=== PATIENT | male | born 1995 | race Caucasian/White ===

== ENCOUNTER 2017-01-16 14:18 | Emergency (ER) | payer OTHER ==
[2017-01-16 14:24] VITALS: TEMP 97.5
--- NOTE | 2017-01-16 14:30 | EDPHY ---
H & P Stated Complaint: PAINFUL URINATION, DARK URINE, LOW BACK PAIN,NAUSEA,CHILLS - Personal History Current Tetanus Diphtheria and Acellular Pertussis (TDAP): Yes - Medical/Surgical History Other PMH: COLLAR BONE FX W/ SURGERY/PLATE, UTI - Social History Smoking Status: Never smoked Time Seen by Provider: 01/16/17 14:30 Constitutional: Initial Vital Signs Temperature (C) 36.4 C 01/16/17 14:22 Heart Rate 114 H 01/16/17 14:22 Respiratory Rate 18 01/16/17 14:22 Blood Pressure 102/64 01/16/17 14:22 O2 Sat (%) 97 01/16/17 14:22 O2 Delivery Mode Room Air Allergies/Adverse Reactions: No Known Allergies Allergy (Unverified 01/16/17 14:21) Home Medications: Medication Instructions Recorded NK [No Known Home Meds] 01/16/17 Medical Decision Making ED Course/Re-evaluation: CHIEF COMPLAINT: Dysuria, chills, flank pain HISTORY OF PRESENT ILLNESS: The patient is a 21 y/o male, with previous history of one UTI at age 19, complaining of dysuria, right flank pain, and chills onset this morning. He has associated dark cloudy urine and one episode of vomiting. He has not had unprotected sex in the last month. He has no history of kidney stones. REVIEW OF SYSTEMS: A 10 point review of systems was performed and is negative with the exception of the elements mentioned in the history of present illness. PHYSICAL EXAM: HR, BP, O2 Sat, RR. Temp noted General Appearance: Alert, well hydrated, appropriate, and non-toxic appearing. Head: Atraumatic without scalp tenderness or obvious injury Eyes: Pupils equal, round, reactive to light and accommodation, EOMI, no trauma , no injection. Ears: Clear bilaterally, no perforation, normal landmarks Nose: Atraumatic, no rhinorrhea, clear. Throat: There is no erythema or exudates, no lesions, normal tonsils, mucus membranes moist. Neck: Supple, 2+ carotid upstroke, nontender, no lymphadenopathy. Respiratory: No retractions, no distress, no wheezes, and no accessory muscle use. Lungs are clear to auscultation bilaterally. Cardiovascular: Regular rate and rhythm, no murmurs, rubs, or gallops. Good capillary refill all extremities. Gastrointestinal: Abdomen is soft, nontender, non-distended, no masses, no rebound, no guarding, no peritoneal signs. Musculoskeletal: Normal active ROM of all extremities, atraumatic. Mild right CVA tenderness. Neurological: Alert, appropriate, and interactive. The patient has normal DTRs and non-focal cranial nerves, motor, sensory, and cerebellar exam. Skin: No rashes, good turgor, no nodules on palpation. Past medical history: One previous UTI Past surgical history: Denies Family history: Noncontributory Social history: Student DIFFERENTIAL DIAGNOSIS: The differential diagnosis for the patient's dysuria included but was not limited to urinary tract infection, kidney stone, pyelonephritis, rhabdomyolysis, viral syndrome, and sepsis. MEDICAL DECISION MAKING: This is a healthy 21 y/o male with a history of one prior UTI in the last two years presenting today with dysuria, chills, and right flank pain. He has mild right CVA tenderness on exam. Plan for UA. UA does not indicate UTI. We will need to evaluate for other causes of his pain including kidney stone, rhabdomyolysis, and other intraabdominal processes. Plan for IV, labs, and abdominal CT. 1500: Patient signed out to Dr. Norwood at shift change pending lab and CT results. (Bharat Ovalles) Signed over to me at shift change. The plan is to do a renal ultrasound (not a CT scan) and if the renal ultrasound is normal to discharge the patient home. There is no he heme/RBC's in his urine, so I doubt that he has rhabdomyolysis. He awoke in the middle of the night last night with right-sided low back pain, 6 /10, associated with some nausea. He was able to sleep well throughout most of the night. Currently he has mild bilateral low back pain and no nausea. Abdomen is soft and nontender. 1554: Patient's renal ultrasound reported to me normal by Dr. Victoria, radiology. Creatinine is 1.4. Pt takes creatine supplementation, told patient to stop taking the supplement. Still concerned regarding ureteral calculus, given dysuria and flank pain, will obtain noncontrast CT scan of the abdomen and pelvis. 1712: Abdominal/pelvic CT reported to me negative by Dr. Taveras, radiology. Will obtain dirty urine for GC/Chlamydia and d/c pt home. (Yulissa Norwood) Differential Diagnosis: Differential diagnosis includes though it is not limited to appendicitis, cholecystitis, diverticulitis, pyelonephritis, bowel perforation, small bowel obstruction. (Yulissa Norwood) - Data Points Laboratory Results: Laboratory Results 01/16/17 15:10 01/16/17 15:10 01/16/17 01/16/17 01/16/17 15:10 15:10 15:10 WBC 9.96 10^3/uL H 10^3/uL (3.80-9.50) RBC 5.69 10^6/uL 10^6/uL (4.40-6.38) Hgb 17.0 g/dL g/dL (13.7-17.5) Hct 49.3 % % (40.0-51.0) MCV 86.6 fL fL (81.5-99.8) MCH 29.9 pg pg (27.9-34.1) MCHC 34.5 g/dL g/dL (32.4-36.7) RDW 13.1 % % (11.5-15.2) Plt Count 254 10^3/uL 10^3/uL (150-400) MPV 10.3 fL fL (8.7-11.7) Neut % (Auto) 91.1 % H % (39.3-74.2) Lymph % (Auto) 4.5 % L % (15.0-45.0) [place] % (Auto) 3.6 % L % (4.5-13.0) Eos % (Auto) 0.2 % L % (0.6-7.6) Baso % (Auto) 0.2 % L % (0.3-1.7) Nucleat RBC Rel Count 0.0 % % (0.0-0.2) Absolute Neuts (auto) 9.07 10^3/uL H 10^3/uL (1.70-6.50) Absolute Lymphs (auto) 0.45 10^3/uL L 10^3/uL (1.00-3.00) Absolute Monos (auto) 0.36 10^3/uL 10^3/uL (0.30-0.80) Absolute Eos (auto) 0.02 10^3/uL L 10^3/uL (0.03-0.40) Absolute Basos (auto) 0.02 10^3/uL 10^3/uL (0.02-0.10) Absolute Nucleated RBC 0.00 10^3/uL 10^3/uL (0-0.01) Immature Gran % 0.4 % % (0.0-1.1) Immature Gran # 0.04 10^3/uL 10^3/uL (0.00-0.10) PT 13.6 SEC SEC (12.0-15.0) INR 1.05 (0.83-1.16) APTT 26.8 SEC SEC (23.0-38.0) Sodium 140 mEq/L mEq/L (134-144) Potassium 4.5 mEq/L mEq/L (3.5-5.2) Chloride 102 mEq/L mEq/L (97-110) Carbon Dioxide 23 mEq/l mEq/l (22-31) Anion Gap 15 mEq/L mEq/L (8-16) BUN 17 mg/dL mg/dL (7-23) Creatinine 1.4 mg/dL H mg/dL (0.7-1.3) Estimated GFR > 60 Glucose 99 mg/dL mg/dL (70-100) Calcium 10.0 mg/dL mg/dL (8.5-10.4) Total Bilirubin 1.2 mg/dL mg/dL (0.1-1.4) Conjugated Bilirubin 0.5 mg/dL mg/dL (0.0-0.5) Unconjugated Bilirubin 0.7 mg/dL mg/dL (0.0-1.1) AST 31 IU/L IU/L (17-59) ALT 43 IU/L IU/L (21-72) Alkaline Phosphatase 86 IU/L IU/L (38-126) Creatine Kinase 220 IU/L IU/L (0-224) Total Protein 8.2 g/dL g/dL (6.3-8.2) Albumin 4.9 g/dL g/dL (3.5-5.0) Lipase 55.0 IU/L IU/L (23-300) Urine Color Urine Appearance Urine pH Ur Specific [place] Urine Protein Urine Ketones Urine Blood Urine Nitrate Urine Bilirubin Urine Urobilinogen Ur Leukocyte Esterase Urine RBC Urine WBC Ur Epithelial Cells Urine Mucus Ur Culture Indicated? Urine Glucose 01/16/17 14:35 WBC RBC Hgb Hct MCV MCH MCHC RDW Plt Count MPV Neut % (Auto) Lymph % (Auto) [place] % (Auto) Eos % (Auto) Baso % (Auto) Nucleat RBC Rel Count Absolute Neuts (auto) Absolute Lymphs (auto) Absolute Monos (auto) Absolute Eos (auto) Absolute Basos (auto) Absolute Nucleated RBC Immature Gran % Immature Gran # PT INR APTT Sodium Potassium Chloride Carbon Dioxide Anion Gap BUN Creatinine Estimated GFR Glucose Calcium Total Bilirubin Conjugated Bilirubin Unconjugated Bilirubin AST ALT Alkaline Phosphatase Creatine Kinase Total Protein Albumin Lipase Urine Color YELLOW Urine Appearance HAZY Urine pH 5.0 (5.0-7.5) Ur Specific [place] 1.029 (1.002-1.030) Urine Protein NEGATIVE (NEGATIVE) Urine Ketones 1+ H (NEGATIVE) Urine Blood NEGATIVE (NEGATIVE) Urine Nitrate NEGATIVE (NEGATIVE) Urine Bilirubin NEGATIVE (NEGATIVE) Urine Urobilinogen NEGATIVE EU EU (0.2-1.0) Ur Leukocyte Esterase NEGATIVE (NEGATIVE) Urine RBC 1-3 /hpf /hpf (0-3) Urine WBC 1-3 /hpf /hpf (0-3) Ur Epithelial Cells TRACE /lpf /lpf (NONE-1+) Urine Mucus 4+ /lpf H /lpf (NONE-1+) Ur Culture Indicated? NOT INDICATED (NI) Urine Glucose NEGATIVE (NEGATIVE) Medications Given: Discontinued Medications Sodium Chloride (Ns) 1,000 mls @ 0 mls/hr IV ONCE ONE PRN Reason: Wide Open Stop: 01/16/17 16:19 Last Admin: 01/16/17 16:26 Dose: 1,000 mls Departure - Departure Disposition: Home, Routine, Self-Care Clinical Impression: Flank pain Condition: Good Instructions: Flank Pain (ED) Additional Instructions: Use Tylenol every 4 hours as needed for pain over the next 3-4 days. Have your creatinine rechecked. Stop taking the creatine supplement. Return to the emergency department for worsening pain, fever, any concerns. Referrals: Phil Mcneal MD [Medical Doctor] - As per Instructions Report Scribed for: Bharat Ovalles Report Scribed by: Niecy Muhammad Date of Report: 01/16/17 Time of Report: 14:48
[2017-01-16 14:51] LABS: COLOR YELLOW; LEUKOCYTE ESTERASE,URINE NEGATIVE (NEGATIVE); NITRITE,URINE NEGATIVE (NEGATIVE)
[2017-01-16 14:56] LABS: MUCUS 4+ /lpf (NONE-1+)
[2017-01-16 15:20] LABS: % IMMATURE GRANULYOCYTES 0.4 % (0.0-1.1); ABSOLUTE IMMATURE GRANULOCYTES 0.04 10^3/uL (0.00-0.10); ADD DIFF? NO; ADD MORPH? NO; ADD SCAN? NO; ATYPICAL LYMPHOCYTE FLAG 10 (0-99); FRAGMENT RBC FLAG 0 (0-99); HEMATOCRIT 49.3 % (40.0-51.0); LEFT SHIFT FLG 0 (0-99); LIPEMIA HEMOLYSIS FLAG 90 (0-99); MEAN CELL HEMOGLOBIN 29.9 pg (27.9-34.1); MEAN CELL HEMOGLOBIN CONCENTR. 34.5 g/dL (32.4-36.7); MEAN CELL VOLUME 86.6 fL (81.5-99.8); MEAN PLATELET VOLUME 10.3 fL (8.7-11.7); PLATELET CLUMPS FLAG 20 (0-99); PLATELET COUNT 254 10^3/uL (150-400); RED BLOOD CELL COUNT 5.69 10^6/uL (4.40-6.38); RED CELL DISTRIBUTION WIDTH 13.1 % (11.5-15.2)
[2017-01-16 15:29] LABS: INR 1.05 (0.83-1.16); PROTIME(PATIENT) 13.6 SEC (12.0-15.0)
[2017-01-16 15:30] LABS: APTT 26.8 SEC (23.0-38.0)
[2017-01-16 15:58] LABS: ALANINE AMINOTRANSFERASE 43 IU/L (21-72); ALBUMIN 4.9 g/dL (3.5-5.0); ALKALINE PHOSPHATASE 86 IU/L (38-126); ANION GAP 15 mEq/L (8-16); ASPARTATE AMINOTRANSFERASE 31 IU/L (17-59); BILIRUBIN,TOTAL 1.2 mg/dL (0.1-1.4); CARBON DIOXIDE 23 mEq/l (22-31); CHLORIDE 102 mEq/L (97-110); CREATININE 1.4 mg/dL (0.7-1.3); GLOMERULAR FILTRATION RATE > 60; GLUCOSE 99 mg/dL (70-100); POTASSIUM 4.5 mEq/L (3.5-5.2); SODIUM 140 mEq/L (134-144); TOTAL PROTEIN 8.2 g/dL (6.3-8.2)
[2017-01-16 16:15] LABS: BILIRUBIN-CONJUGATED 0.5 mg/dL (0.0-0.5); BILIRUBIN-UNCONJUGATED 0.7 mg/dL (0.0-1.1)
[2017-01-16] MEDS ORDERED: NS 1,000 ML IV ONE (16:18)
[2017-01-16 17:55] VITALS: BP 102/74; PULSE 95; RESP 16; O2SAT 98
[2017-01-19 10:06] LABS: CHLAMYDIA AMPLIFICATION GENPRB NEGATIVE (NEGATIVE)
== END 2017-01-16 17:53 | disposition home or self-care (01) ==
DX: R10.9 Unspecified abdominal pain (principal)